=== PATIENT | male | born 2000 | race Caucasian/White ===

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

== ENCOUNTER 2023-08-24 06:49 | Emergency (ER) | payer BC, SELFPAY ==
[2023-08-24 06:49] VITALS: BP 135/76; PULSE 71; RESP 18; TEMP 36.4; O2SAT 100
--- NOTE | 2023-08-24 07:33 | ED.EYEPROB ---
HPI - Eye Problem General Chief complaint: Eye Problems Stated complaint: eye issue Time Seen by Provider: 08/24/23 07:26 Source: patient History of Present Illness HPI Narrative: 22 years old white male presents with irritation and dryness feeling of both eyes over the last few days. Patient wearing distant glasses, last seen by his phlebotomy coordinator over 1 year ago. He denies any trauma, fever, chills, nausea, vomiting, discharge or respiratory symptoms Related Data Allergies Allergy/AdvReac Type Severity Reaction Status Date / Time sulfamethoxazole Allergy Unknown Unknown Verified 08/24/23 07:38 [From ] trimethoprim [From ] Allergy Unknown Unknown Verified 08/24/23 07:38 amoxicillin Allergy Unknown Verified 08/24/23 07:38 Review of Systems Review of Systems: All systems reviewed & are unremarkable except as noted in HPI and below PMFSH Past Medical History Medical History Moderate left ankle sprain (12/19/19) Social History Social History Smoking status: Unknown if ever smoked Alcohol intake: unknown Substance use: unknown Occupation/Education: occupation 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 Narrative: General appearance: Well-developed, well-nourished Skin: Normal color Head: Normocephalic, nontraumatic Eyes: slight pinkish coloration of the conjunctiva bilaterally, extraocular muscle intact, pupils reactive to light bilaterally ENT: Oropharynx normal, ears normal, nose normal Neck: Supple, nontender Neurologic: Alert and oriented ?3, [employer] PROFESSION[employer] is normal as tested, no gross motor deficit Course Vital Signs Vital signs: Vital Signs Temperature 36.4 C L 08/24/23 06:49 Pulse Rate 71 08/24/23 06:49 Respiratory Rate 18 08/24/23 06:49 Blood Pressure 135/76 08/24/23 06:49 Pulse Oximetry 100 08/24/23 06:49 Oxygen Delivery Room Air 08/24/23 06:49 Temperature 36.4 C L 08/24/23 06:49 Pulse Rate 71 08/24/23 06:49 Respiratory Rate 18 08/24/23 06:49 Blood Pressure 135/76 08/24/23 06:49 Pulse Oximetry 100 08/24/23 06:49 Oxygen Delivery Room Air 08/24/23 06:49 Critical Care Time Critical Care Time Critical Care Time: No Discharge Plan Discharge Clinical Impression: Conjunctivitis unspecified Patient Disposition: Home, Self-Care Condition: Stable Instructions: Conjunctivitis (ED) Additional Instructions: Return if symptoms are worsening , call your family physician for appointment, take Tylenol as as needed for aches and pain, continue home medications. If there is no improvement in 5 days to see your phlebotomy coordinator as soon as possible for further evaluation Prescriptions: New Allergy Eye (naphazoline-phen) 0.025-0.3 % drops 2 drp EACH EYE QID PRN (Reason: eye irritation) Qty: 15 0RF Follow-up/Referrals: Hebert Faulkner MD [Primary Care Provider] - Stand Alone Forms: Work/School Release IP
== END 2023-08-24 07:40 | disposition home or self-care (01) ==
PROVIDERS: Emergency Provider Emergency Medicine; PCP Family Medicine
DX: H10.9 Unspecified conjunctivitis (principal)
CPT/HCPCS: 99283

== ENCOUNTER 2023-08-29 07:24 | Outpatient (CLI) | payer BC, SELFPAY ==
--- NOTE | ~2023-08-29 | MR_ITS ---
MRI of the brain Clinical History: Papilledema Technique: Axial and sagittal T1-weighted images were acquired. These were followed by axial T2-weigh chad, diffusion weighted, gradient, and FLAIR images. Following intravenous administration of 15 cc Mu ltiHance gadolinium, T1-weighted fat-sat imaging was performed in the axial and coronal planes. Findings: There is no abnormal signal in the brain parenchyma. No acute infarct, intracranial hemorrh age, or mass lesion identified. Ventricles and subarachnoid spaces are unremarkable. Orbits are unremarkable. Paranasal sinuses and m astoid air cells are clear. Major intracranial flow voids appear intact. Sagittal midline structures are intact. No abnormal postcontrast enhancement identified. IMPRESSION: Unremarkable exam. Reviewed, dictated and finalized at location M. WORKER IMPRESSION: Unremarkable exam.
== END 2023-08-29 07:25 | disposition home or self-care (01) ==
PROVIDERS: PCP Family Medicine; Visit Provider Family Medicine
DX: H47.10 Unspecified papilledema (principal)
CPT/HCPCS: 70553; A9577